=== PATIENT | female | born 1970 | race Caucasian/White ===

== ENCOUNTER 2021-06-13 09:32 | Emergency (ER) | payer OTHER ==
[~2021-06-13] VITALS: Ht 157.5 cm; Wt 96.6 kg
[2021-06-13 09:46] VITALS: BP 128/68
[2021-06-13] MEDS ORDERED: BENZONATATE 100 MG CAPSULE PO ONE (11:15)
== END 2021-06-13 12:02 | disposition left against medical advice (07) ==
LOC: EMS 09:35
DX: J40 Bronchitis, not specified as acute or chronic (principal); Z90.89 Acquired absence of other organs
CPT/HCPCS: 71045; 93005; 99283